=== PATIENT | male | born 1935 | race Caucasian/White ===

== ENCOUNTER 2021-07-23 05:46 | Inpatient (IN) | payer OTHER, SELFPAY ==
[~2021-07-23] VITALS: Ht 172.7 cm; Wt 70.8 kg
[2021-07-23 05:46] VITALS: BP_SYST 115
[~2021-07-23 05:46] MED LIST: ALBMDI INH; ALPR0.25 PO; GLIP5TAB13 PO; GLUXR500 PO; LEVO25TA7 PO
--- NOTE | 2021-07-23 06:01 | NUR ---
Patient BIB by ALS/EMS from [facility]. C/o Altered Mental Status x today. Per ALS/EMS reported, patient took Xanax 2 mg unknown does, Patient came with empty bottle of Xanax (refill on 06/15/21 ) .
--- NOTE | 2021-07-23 06:06 | NUR ---
ER Dr. Pyle at bedside examining patient.
[2021-07-23] MEDS ORDERED: FLUMAZENIL 0.1 MG/ML IVP ONE ×2 (06:15→08:43)
--- NOTE | 2021-07-23 06:30 | NUR ---
IN and out cath , collected urine sample and sent to lab.
[2021-07-23] MEDS ORDERED: SIMV40TA2 PO (06:40)
[2021-07-23] MEDS ORDERED: FAMO20TA8 PO (06:40)
--- NOTE | 2021-07-23 06:40 | NUR ---
Medication reconciliation completed with information provided by patient's medication (bottles) . Any prior medication reconciliation on file was reviewed and corrected.
--- NOTE | 2021-07-23 06:44 | NUR ---
Blood for labwork drawn from director of strategic sales. Patient tolerated fair.
--- NOTE | 2021-07-23 06:45 | NUR ---
Called Poison Control at [phone] for 20 minutes , and no one available to answer phone call.
[2021-07-23 06:54] LABS: BILIRUBIN,URINE NEGATIVE (NEGATIVE); BLOOD, URINE NEGATIVE (NEGATIVE); CLARITY/URINE CLEAR (CLEAR); COLOR,URINE YELLOW (YELLOW); GLUCOSE,URINE NEGATIVE (NEGATIVE); KETONES,URINE NEGATIVE (NEGATIVE); LEUKOCYTE ESTERASE ,URINE NEGATIVE (NEGATIVE); NITRITE, URINE NEGATIVE (NEGATIVE); PH,URINE 6.5 (5.0-8.0); PROTEIN URINE NEGATIVE (NEGATIVE); UROBILINOGEN,URINE 0.2 (0.2-1.0)
[2021-07-23 07:07] LABS: BARBITURATE, URINE NEGATIVE (NEG <=200); METHAMPHETAMINES SCREEN,URINE NEGATIVE (NEG <=500); URINE AMPHETAMINE NEGATIVE (NEG <=500); URINE METHADONE NEGATIVE (NEG <=200)
[2021-07-23 07:10] LABS: BENZODIAZEPINE, URINE POSITIVE (NEG <=150); CANNABINOID, URINE NEGATIVE (NEG <=50); COCAINE, URINE NEGATIVE (NEG <=150); OPIATE, URINE NEGATIVE (NEG <=100); PHENCYCLIDINE SCREEN,URINE NEGATIVE (NEG <=25); UR TRICYCLIC ANTIDEPRESSANTS NEGATIVE (NEG <=300); URINE OXYCODONE SCREEN NEGATIVE (NEG <=100); URINE PROPOXYPHENE SCREEN NEGATIVE (NEG <=300)
--- NOTE | 2021-07-23 07:11 | NUR ---
X-ray at bedside.
[2021-07-23 07:17] LABS: BASOPHILS # (AUTO) 0.1 K/uL (0.0-0.2); BASOPHILS % (AUTO) 1.5 % (0.0-2.0); EOSINOPHILS # (AUTO) 0.3 K/uL (0.0-0.4); EOSINOPHILS % (AUTO) 3.5 % (0.0-4.0); HEMATOCRIT 37.8 % (36-54); HEMOGLOBIN 12.3 g/dL (14.0-18.0); LYMPHOCYTES # (AUTO) 1.6 K/uL (1.0-5.5); LYMPHOCYTES % (AUTO) 19.4 % (20.5-51.5); MEAN CORPUSCULAR HEMOGLOBIN 28 pg (27-31); MEAN CORPUSCULAR HGB CONC 33 % (32-36); MEAN CORPUSCULAR VOLUME 86 fL (79.0-98.0); MONOCYTES # (AUTO) 1.1 K/uL (0.0-1.0); MONOCYTES % (AUTO) 12.8 % (1.7-9.3); NEUTROPHILS # (AUTO) 5.3 K/uL (1.8-7.7); NEUTROPHILS % (AUTO) 62.8 % (40.0-70.0); PLATELET COUNT (AUTO) 291 K/uL (130-430); RED BLOOD CELL COUNT(AUTO) 4.39 MIL/uL (4.2-6.2); RED CELL DISTRIBUTION WIDTH 15.9 % (9.0-15.0); WHITE BLOOD COUNT (AUTO) 8.4 K/uL (4.8-10.8)
[2021-07-23 07:46] LABS: PROTHROMBIN TIME 10.4 SECS (9.5-12.5)
--- NOTE | 2021-07-23 07:49 | NUR ---
RECEIVED REPORT, PT WITH EYES CLOSED, IN NAD. RESP EVEN AND UNLABORED. AROUSABLE TO TACTILE STIMULATION, COUGHING PRODUCTIVE WHITE THICK SPUTUM, ASSISTED WITH YANKUR TO SUCTION. UNABLE TO FOLLOW COMMANDS, PT MUMBLES UNCOMPREHENSIBLE SOUNDS. EYES OPEN, LETHARGIC. VSS,ON RA @98%. SKIN W/D/I. WILL CONT TO MONITOR.
[2021-07-23 08:01] LABS: ANION GAP 6 (5-15); CALCIUM 8.6 mg/dL (8.4-11.0); CHLORIDE 107 mmol/L (98-107); CREATININE 1.24 mg/dL (0.55-1.30); GLUCOSE 155 mg/dL (70-99); POTASSIUM 4.2 mmol/L (3.5-5.1); SODIUM SERUM 139 mmol/L (136-145); UREA NITROGEN, BLOOD 11 mg/dL (8-21)
[2021-07-23 08:08] LABS: ALANINE AMINOTRANSFERASE 31 U/L (12-78); ALBUMIN 2.5 g/dL (3.4-4.8); ASPARTATE AMINOTRANSFERASE 20 U/L (10-37); TOTAL BILIRUBIN 0.5 mg/dL (0.0-1.0)
[2021-07-23 08:09] LABS: ACETAMINOPHEN < 1 ug/mL (1-30); ALCOHOL, BLOOD < 3 mg/dL (<10)
[2021-07-23 08:31] LABS: C-REACTIVE PROTEIN QUANT 1.7 mg/dL (0-0.5)
--- NOTE | 2021-07-23 08:46 | NUR ---
CT SCAN DONE, PT MEDICATED REQUESTED PER DR KIRK AT THIS TIME. PT AWAKENS, MOVING ALL 4 EXTREMITIES , COUGHING PRODUCTIVE THICK WHITE SPUTUM. DR KIRK UPDATED ON CURRENT STATUS. CXR DONE. WAIITNG FOR FURTHER ORDERS.
[2021-07-23 09:23] LABS: ACETONE, SERUM NEGATIVE (NEGATIVE)
--- NOTE | 2021-07-23 09:51 | NUR ---
PT WITH EYES CLOSED, IN NAD. VSS, NO FURTHER COUGH HEARD. RESP UNLABORED, ON RA @96%.
[2021-07-23] MEDS: D5NS 1,000 ML IV SCH (10:30)
--- NOTE | 2021-07-23 11:18 | NUR ---
PHARM WAS CALLED TO [facility] D5[facility].
--- NOTE | 2021-07-23 13:01 | NUR ---
PT WITH EYES CLOSED, IN NAD. RESP EVEN AND UNLABORED. ON MONITOR. VSS. IV FLUIDS INFUSING WELL. WAITING FOR ADMISSION BED, CN AWARE.
[2021-07-23] MEDS ORDERED: INSULIN REGULAR, HUMAN 100 UNITS/ML, 10 ML VIAL (humuLIN R) SUBCUT PRN (15:00)
[2021-07-23] MEDS ORDERED: DEXTROSE 50% JECT 50 ML DISP.SYRIN IVP PRN (15:00)
--- NOTE | 2021-07-23 17:43 | NUR ---
PT WITH EYES CLOSED, INTERMITTENT COUGHING , SUCTIONED SMALL AMOUNTS OF WHITE THICK SPUTUM. RESP EVEN AND UNLABORED, ON RA @97%, LS-COARSE TONNY. WAITING FOR ADMISIIO BED. SAFETY PRECAUTIONS IN PLACE. VSS.
--- NOTE | 2021-07-23 18:56 | NUR ---
DR LYN PAGED FOR COUGH MED ORDER, PT CONTNUES TO HAVE PRODUCTIVE COUGH.
--- NOTE | 2021-07-23 19:33 | NUR ---
REPORT RECEIEVED. PATIENT RESTING AT THIS TIME. IVF INFUSING WITHOUT DIFFUCULTIES. BELONGINGS DONE AT BEDSIDE. Patient's code status is FULL CODE paperwork completed and placed in chart.
--- NOTE | 2021-07-23 20:32 | NUR ---
nPatient will be admitted to care of [facility]. Admitted to tele unit. Will go to room 112b. Belongings list completed. Complete and up to date summary report printed. SBAR report to be given at bedside with opportunity for questions.
--- NOTE | 2021-07-23 20:32 | NUR ---
Transfer to TELE via ACLS protocol. Licensed nurse present. IV present no signs or symptoms of infiltration.
--- NOTE | 2021-07-23 20:42 | NUR ---
ADMISSION NOTE Received patient from ER via lata, received report from Dawna OVIEDO. Patient admitted with diagnosis of Benzo Overdose. Patient oriented to hospital routine, call light, toileting and safety-patient verbalized understanding.
[2021-07-23 20:54] VITALS: BP_SYST 137
[2021-07-23] MEDS: FAMOTIDINE 20 MG TABLET PO SCH (22:39)
[2021-07-24] VITALS: BP_SYST 143
[2021-07-24] MEDS: D5NS 1,000 ML IV SCH (01:43)
--- NOTE | 2021-07-24 07:03 | NUR ---
Nutrition Update Galindo Scale 13 noted. Pt admitted for Benzo Overdose Diet: NPO BMI: 23.7 kg/m2 RD to follow per nutrition care standards.
--- NOTE | 2021-07-24 07:46 | NUR ---
CLOSING NOTES PATIENT RESTING, NO SIGNS OF ACUTE RESPIRATORY DISTRESS NOTED. CALL LIGHT WITHIN REACH, BED ALARM ON, BED LOCKED, BED AT LOWEST POSITION. SAFETY, RESPIRATORY, ASPIRATION, FALL, AND ISOLATION PRECAUTIONS IN PLACE THROUGHOUT SHIFT. WILL ENDORSE CARE TO ONCOMING SHIFT THAT PATIENT IS STAYING AT A MOTEL AND HAS BEEN WITH HIS SON FOR 3 YEARS AND PATIENT'S SON STATES THAT IS THEIR PERMANENT RESIDENCE AND THERE IS "NO NEED TO CALL PROP CUTTER." ALSO ENDORSED BELONGINGS AND HOME MEDICATIONS.
[2021-07-24] MEDS: FAMOTIDINE 20 MG TABLET PO SCH (08:34)
--- NOTE | 2021-07-24 08:36 | NUR ---
alert, oriented, " lives in a motel with son x 3years now" while talking, keeps on coughing dry cough, " disturbing", he said NPO with ivf running continuously at 70cc/hr
[2021-07-24 08:39] VITALS: BP_SYST 148
--- NOTE | 2021-07-24 11:28 | NUR ---
KANE GONZALEZ, SPOKE TO SABI
--- NOTE | 2021-07-24 11:35 | NUR ---
son Krishan called, , patient's condition updated. Seen by attending, patient discharged if cleared from cardiac point of view. Dr Matos made aware for consultation Needs PT eval prior to discharge back to the [facility]. Per Son, Krishan, did ask for the discharge be postponed another day, until he hears from drs, " drs need to call me for my father's condition.
[2021-07-24 12:38] VITALS: BP_SYST 146
[2021-07-24 15:29] VITALS: BP_SYST 129
[2021-07-24 16:50] VITALS: BP_SYST 129
--- NOTE | 2021-07-24 18:41 | NUR ---
called Krishan, patient's son, made aware the discharge back to the [facility] with taxi voucher 1840 taxi arrrived, patient escorted to the lobby by nurse, patient is discharged, alert, oriented, articulate, and continues to cough non productive cough
== END 2021-07-24 18:45 | disposition home or self-care (01) | DRG 917 ==
LOC: SED 05:46 → STU 10:18
PROVIDERS: ADMIT Internal Medicine Hospice and Palliative Medicine; ATTEND Internal Medicine Hospice and Palliative Medicine
DX: T42.4X1A Poisoning by benzodiazepines, accidental (unintentional), initial encounter (principal); G92 Toxic encephalopathy; E43 Unspecified severe protein-calorie malnutrition; E11.9 Type 2 diabetes mellitus without complications; Z20.822 Contact with and (suspected) exposure to COVID-19; Z79.01 Long term (current) use of anticoagulants; Z79.899 Other long term (current) drug therapy; Y92.89 Other specified places as the place of occurrence of the external cause; Z86.16 Personal history of COVID-19
CPT/HCPCS: 36415; 70450-TC; 71045; 76376; 80053; 80307; 81003; 82009; 82140; 82550; 82962; 83605; 83880; 84484; 85025; 85610-TC; 85730-TC; 86140; 93005; 96372; 96374; 99285; G0378; G0480; G0481; G0482; J1815; J3490

== ENCOUNTER 2022-06-23 17:10 | Inpatient (IN) | payer OTHER ==
[~2022-06-23] VITALS: Ht 172.7 cm; Wt 79.4 kg
[~2022-06-23 17:10] MED LIST changes: +FAMO20TA8 PO; +SIMV40TA2 PO
[2022-06-23 17:15] VITALS: BP_SYST 118
[2022-06-23] MEDS ORDERED: MORPHINE 2 MG/ML INJ. SYRINGE IM ONE (17:45)
[2022-06-23 18:26] LABS: BASOPHILS # (AUTO) 0.1 K/uL (0.0-0.2); BASOPHILS % (AUTO) 0.8 % (0.0-2.0); EOSINOPHILS # (AUTO) 0.5 K/uL (0.0-0.4); EOSINOPHILS % (AUTO) 7.2 % (0.0-4.0); HEMATOCRIT 38.4 % (36-54); HEMOGLOBIN 12.8 g/dL (14.0-18.0); LYMPHOCYTES % (AUTO) 14.9 % (20.5-51.5); MEAN CORPUSCULAR HEMOGLOBIN 29 pg (27-31); MEAN CORPUSCULAR HGB CONC 33 % (32-36); MEAN CORPUSCULAR VOLUME 88 fL (79.0-98.0); MONOCYTES # (AUTO) 0.6 K/uL (0.0-1.0); MONOCYTES % (AUTO) 9.1 % (1.7-9.3); NEUTROPHILS # (AUTO) 4.6 K/uL (1.8-7.7); PLATELET COUNT (AUTO) 219 K/uL (130-430); RED BLOOD CELL COUNT(AUTO) 4.38 MIL/uL (4.2-6.2); RED CELL DISTRIBUTION WIDTH 14.5 % (9.0-15.0); WHITE BLOOD COUNT (AUTO) 6.7 K/uL (4.8-10.8)
[2022-06-23] MEDS ORDERED: MORPHINE 4 MG INJ. 4 MG/ML VIAL IVP ONE ×2 (18:30)
[2022-06-23] MEDS ORDERED: MORPHINE 4 MG INJ. 4 MG/ML VIAL IM ONE (18:30)
[2022-06-23 18:33] LABS: PROTHROMBIN TIME 10.2 SECS (9.5-12.5)
[2022-06-23 21:08] LABS: CHLORIDE 104 mmol/L (98-107); SODIUM SERUM 140 mmol/L (136-145)
[2022-06-23 21:09] LABS: ALANINE AMINOTRANSFERASE 22 U/L (12-78); ANION GAP 13 (5-15); ASPARTATE AMINOTRANSFERASE 24 U/L (10-37); CREATININE 1.53 mg/dL (0.55-1.30); GLUCOSE 154 mg/dL (70-99); TOTAL BILIRUBIN 0.4 mg/dL (0.0-1.0); UREA NITROGEN, BLOOD 37 mg/dL (8-21)
[2022-06-23 21:12] LABS: ACETAMINOPHEN < 1 ug/mL (1-30); ALCOHOL, BLOOD < 3 mg/dL (<10)
[2022-06-24 00:54] LABS: BILIRUBIN,URINE NEGATIVE (NEGATIVE); CLARITY/URINE CLEAR (CLEAR); COLOR,URINE YELLOW (YELLOW); GLUCOSE,URINE NEGATIVE (NEGATIVE); KETONES,URINE NEGATIVE (NEGATIVE); LEUKOCYTE ESTERASE ,URINE 3+ (NEGATIVE); NITRITE, URINE NEGATIVE (NEGATIVE); PROTEIN URINE TRACE (NEGATIVE); UROBILINOGEN,URINE 0.2 (0.2-1.0)
[2022-06-24 01:00] LABS: BLOOD, URINE TRACE (NEGATIVE)
[2022-06-24 01:06] LABS: BARBITURATE, URINE NEGATIVE (NEG <=200); BENZODIAZEPINE, URINE POSITIVE (NEG <=150); CANNABINOID, URINE NEGATIVE (NEG <=50); COCAINE, URINE NEGATIVE (NEG <=150); METHAMPHETAMINES SCREEN,URINE NEGATIVE (NEG <=500); OPIATE, URINE POSITIVE (NEG <=100); PHENCYCLIDINE SCREEN,URINE NEGATIVE (NEG <=25); URINE AMPHETAMINE NEGATIVE (NEG <=500); URINE METHADONE NEGATIVE (NEG <=200)
[2022-06-24 01:07] LABS: UR TRICYCLIC ANTIDEPRESSANTS NEGATIVE (NEG <=300); URINE OXYCODONE SCREEN NEGATIVE (NEG <=100); URINE PROPOXYPHENE SCREEN NEGATIVE (NEG <=300)
[2022-06-24 02:20] VITALS: BP_SYST 114
[2022-06-24 02:51] LABS: BACTERIA,URINE None Seen /HPF (None Seen); MUCUS,URINE 1+ /LPF (None Seen); WBC,URINE >100 /HPF (0-3)
[2022-06-24 04:00] VITALS: BP_SYST 122
[2022-06-24 08:26] VITALS: BP_SYST 145
[2022-06-24 12:00] VITALS: BP_SYST 140
[2022-06-24] MEDS ORDERED: HYDROcodone/ACETAMIN 5-325 MG TAB (NORCO/ VICODIN) PO PRN (12:15)
[2022-06-24] MEDS ORDERED: ACETAMINOPHEN 325 MG TABLET PO PRN (12:15)
[2022-06-24] MEDS ORDERED: ALBUTEROL SULFATE 0.083% 2.5 MG/3 ML VIAL.NEB INH PRN (12:15)
[2022-06-24] MEDS ORDERED: LORazepam 2 MG/ML VIAL IVP PRN (12:15)
[2022-06-24] MEDS ORDERED: ONDANSETRON HCL 4 MG/2 ML VIAL IVP PRN (12:15)
[2022-06-24] MEDS ORDERED: NALOXONE HCL 0.4 MG/ML AMP (NARCAN) IVP PRN ×2 (12:15)
[2022-06-24] MEDS ORDERED: IPRATROPIUM BROM 0.5 MG/2.5 ML VIAL.NEB (ATROVENT) INH PRN (12:15)
[2022-06-24] MEDS ORDERED: ALBUTEROL MDI INHALATION 8 GM INH INH PRN (12:15)
[2022-06-24] MEDS: D5/0.45 NS 1,000 ML IV SCH ×2 (13:30→22:15)
[2022-06-24] MEDS: cefTRIAXone 1 GM IVPB PREMIX 50 ML IV SCH (13:30)
[2022-06-24] MEDS: HYDROcodone/ACETAMIN 10-325 MG TAB PO PRN (15:40)
[2022-06-24 16:02] VITALS: BP_SYST 121
[2022-06-24] MEDS: INSULIN REGULAR, HUMAN 100 UNITS/ML, 10 ML VIAL (humuLIN R) SUBCUT PRN (17:13)
[2022-06-24] MEDS: SIMVASTATIN 40 MG TABLET PO SCH (21:02)
[2022-06-24] MEDS: FAMOTIDINE 20 MG TABLET PO SCH (21:02)
[2022-06-25] VITALS: BP_SYST 127
[2022-06-25 07:00] VITALS: BP_SYST 121
[2022-06-25 07:08] LABS: BASOPHILS % (AUTO) 0.4 % (0.0-2.0); EOSINOPHILS # (AUTO) 0.7 K/uL (0.0-0.4); EOSINOPHILS % (AUTO) 11.8 % (0.0-4.0); HEMATOCRIT 38.7 % (36-54); HEMOGLOBIN 12.9 g/dL (14.0-18.0); LYMPHOCYTES # (AUTO) 0.6 K/uL (1.0-5.5); LYMPHOCYTES % (AUTO) 9.4 % (20.5-51.5); MEAN CORPUSCULAR HEMOGLOBIN 29 pg (27-31); MEAN CORPUSCULAR HGB CONC 33 % (32-36); MEAN CORPUSCULAR VOLUME 87 fL (79.0-98.0); MONOCYTES # (AUTO) 0.1 K/uL (0.0-1.0); MONOCYTES % (AUTO) 2.3 % (1.7-9.3); NEUTROPHILS # (AUTO) 4.6 K/uL (1.8-7.7); NEUTROPHILS % (AUTO) 76.1 % (40.0-70.0); PLATELET COUNT (AUTO) 222 K/uL (130-430); RED BLOOD CELL COUNT(AUTO) 4.47 MIL/uL (4.2-6.2); RED CELL DISTRIBUTION WIDTH 14.2 % (9.0-15.0)
[2022-06-25 07:39] LABS: ANION GAP 9 (5-15); CALCIUM 8.3 mg/dL (8.4-11.0); CHLORIDE 104 mmol/L (98-107); CREATININE 1.24 mg/dL (0.55-1.30); GLUCOSE 159 mg/dL (70-99); PHOSPHORUS 2.6 mg/dL (2.7-4.5); POTASSIUM 4.2 mmol/L (3.5-5.1); SODIUM SERUM 139 mmol/L (136-145); UREA NITROGEN, BLOOD 32 mg/dL (8-21)
[2022-06-25 08:00] VITALS: BP_SYST 121
[2022-06-25] MEDS: D5/0.45 NS 1,000 ML IV SCH ×2 (08:15→19:09)
[2022-06-25] MEDS: FAMOTIDINE 20 MG TABLET PO SCH ×2 (09:27→22:29)
[2022-06-25] MEDS: LEVOTHYROXINE SODIUM 0.025 MG TABLET PO SCH (09:29)
[2022-06-25] MEDS ORDERED: HYDR-3919 PO (11:11)
[2022-06-25 12:00] VITALS: BP_SYST 119
[2022-06-25] MEDS: INSULIN REGULAR, HUMAN 100 UNITS/ML, 10 ML VIAL (humuLIN R) SUBCUT PRN (12:08)
[2022-06-25] MEDS: cefTRIAXone 1 GM IVPB PREMIX 50 ML IV SCH (15:04)
[2022-06-25 16:00] VITALS: BP_SYST 124
[2022-06-25] MEDS: ALPRAZolam 0.25 MG TABLET PO PRN (20:23)
[2022-06-25] MEDS: SIMVASTATIN 40 MG TABLET PO SCH (22:29)
[2022-06-25 23:37] VITALS: BP_SYST 128
[2022-06-26 01:45] VITALS: BP_SYST 137
[2022-06-26] MEDS: D5/0.45 NS 1,000 ML IV SCH (04:15)
[2022-06-26 07:00] VITALS: BP_SYST 117
[2022-06-26 08:00] VITALS: BP_SYST 117
[2022-06-26 08:16] LABS: ANION GAP 9 (5-15); CALCIUM 8.4 mg/dL (8.4-11.0); CHLORIDE 105 mmol/L (98-107); CREATININE 1.17 mg/dL (0.55-1.30); GLUCOSE 86 mg/dL (70-99); POTASSIUM 4.1 mmol/L (3.5-5.1); SODIUM SERUM 138 mmol/L (136-145); UREA NITROGEN, BLOOD 25 mg/dL (8-21)
[2022-06-26] MEDS: LEVOTHYROXINE SODIUM 0.025 MG TABLET PO SCH (09:00)
[2022-06-26 09:03] LABS: BASOPHILS % (AUTO) 0.2 % (0.0-2.0); EOSINOPHILS # (AUTO) 0.7 K/uL (0.0-0.4); EOSINOPHILS % (AUTO) 8.7 % (0.0-4.0); HEMATOCRIT 39.8 % (36-54); HEMOGLOBIN 12.7 g/dL (14.0-18.0); LYMPHOCYTES # (AUTO) 1.1 K/uL (1.0-5.5); LYMPHOCYTES % (AUTO) 13.1 % (20.5-51.5); MEAN CORPUSCULAR HEMOGLOBIN 29 pg (27-31); MEAN CORPUSCULAR HGB CONC 32 % (32-36); MEAN CORPUSCULAR VOLUME 89 fL (79.0-98.0); MONOCYTES # (AUTO) 0.4 K/uL (0.0-1.0); MONOCYTES % (AUTO) 5.3 % (1.7-9.3); NEUTROPHILS # (AUTO) 5.9 K/uL (1.8-7.7); NEUTROPHILS % (AUTO) 72.7 % (40.0-70.0); PLATELET COUNT (AUTO) 188 K/uL (130-430); RED BLOOD CELL COUNT(AUTO) 4.46 MIL/uL (4.2-6.2); RED CELL DISTRIBUTION WIDTH 14.3 % (9.0-15.0); WHITE BLOOD COUNT (AUTO) 8.1 K/uL (4.8-10.8)
[2022-06-26] MEDS: FAMOTIDINE 20 MG TABLET PO SCH ×2 (09:13→20:40)
[2022-06-26 14:00] VITALS: BP_SYST 131
[2022-06-26] MEDS: NORMAL SALINE 5 ML DISP.SYRIN IVF SCH ×2 (14:01→22:37)
[2022-06-26 16:25] VITALS: BP_SYST 140
[2022-06-26 20:00] VITALS: BP_SYST 128
[2022-06-26] MEDS: HYDROcodone/ACETAMIN 10-325 MG TAB PO PRN (20:41)
[2022-06-26] MEDS: SIMVASTATIN 40 MG TABLET PO SCH (20:41)
[2022-06-26] MEDS: ALPRAZolam 0.25 MG TABLET PO PRN (20:42)
[2022-06-27] VITALS (9 sets, daily range): BP systolic 110–158
[2022-06-27] MEDS: NORMAL SALINE 5 ML DISP.SYRIN IVF SCH ×3 (06:28→22:00)
[2022-06-27] MEDS ORDERED: DEXTROSE 50% JECT 50 ML DISP.SYRIN IVP ONE (07:30)
[2022-06-27] MEDS: FAMOTIDINE 20 MG TABLET PO SCH ×2 (09:14→21:49)
[2022-06-27] MEDS ORDERED: LEVOTHYROXINE SODIUM 0.025 MG TABLET PO SCH (12:06)
[2022-06-27] MEDS ORDERED: LEVOTHYROXINE SODIUM 0.025 MG TABLET PO ONE (12:15)
[2022-06-27] MEDS: SIMVASTATIN 40 MG TABLET PO SCH (21:49)
[2022-06-28 00:15] VITALS: BP_SYST 126
[2022-06-28] MEDS: NORMAL SALINE 5 ML DISP.SYRIN IVF SCH ×2 (06:00→14:22)
[2022-06-28 07:00] VITALS: BP_SYST 125
[2022-06-28] MEDS ORDERED: LEVOTHYROXINE SODIUM 0.025 MG TABLET PO SCH (07:00)
[2022-06-28 08:00] VITALS: BP_SYST 125
[2022-06-28 08:24] LABS: BASOPHILS % (AUTO) 0.4 % (0.0-2.0); EOSINOPHILS # (AUTO) 0.4 K/uL (0.0-0.4); EOSINOPHILS % (AUTO) 5.2 % (0.0-4.0); HEMATOCRIT 35.8 % (36-54); HEMOGLOBIN 12.1 g/dL (14.0-18.0); LYMPHOCYTES # (AUTO) 1.2 K/uL (1.0-5.5); LYMPHOCYTES % (AUTO) 16.1 % (20.5-51.5); MEAN CORPUSCULAR HEMOGLOBIN 29 pg (27-31); MEAN CORPUSCULAR HGB CONC 34 % (32-36); MEAN CORPUSCULAR VOLUME 86 fL (79.0-98.0); MONOCYTES # (AUTO) 0.5 K/uL (0.0-1.0); NEUTROPHILS # (AUTO) 5.5 K/uL (1.8-7.7); NEUTROPHILS % (AUTO) 72.3 % (40.0-70.0); PLATELET COUNT (AUTO) 260 K/uL (130-430); RED BLOOD CELL COUNT(AUTO) 4.15 MIL/uL (4.2-6.2); WHITE BLOOD COUNT (AUTO) 7.6 K/uL (4.8-10.8)
[2022-06-28] MEDS: FAMOTIDINE 20 MG TABLET PO SCH (09:05)
[2022-06-28 09:55] LABS: ALANINE AMINOTRANSFERASE 12 U/L (12-78); ALBUMIN 2.4 g/dL (3.4-4.8); ANION GAP 9 (5-15); ASPARTATE AMINOTRANSFERASE 19 U/L (10-37); CALCIUM 8.5 mg/dL (8.4-11.0); CHLORIDE 104 mmol/L (98-107); CREATININE 1.39 mg/dL (0.55-1.30); GLUCOSE 118 mg/dL (70-99); PHOSPHORUS 2.6 mg/dL (2.7-4.5); POTASSIUM 4.5 mmol/L (3.5-5.1); SODIUM SERUM 138 mmol/L (136-145); TOTAL BILIRUBIN 0.3 mg/dL (0.0-1.0); UREA NITROGEN, BLOOD 28 mg/dL (8-21)
[2022-06-28] MEDS ORDERED: LORazepam 1 MG TABLET PO PRN (11:15)
[2022-06-28] MEDS ORDERED: NA PHOS 15 MM in NS 250 ML IV ONE (11:45)
[2022-06-28 12:00] VITALS: BP_SYST 125
== END 2022-06-28 15:05 | disposition home health service (06) | DRG 562 ==
LOC: SED 17:10 → SMU 20:04
PROVIDERS: ADMIT Preventive Medicine Preventive Medicine/Occupational Environmental Medicine; ATTEND Preventive Medicine Preventive Medicine/Occupational Environmental Medicine
DX: S42.212A Unspecified displaced fracture of surgical neck of left humerus, initial encounter for closed fracture (principal); N17.0 Acute kidney failure with tubular necrosis; U07.1 COVID-19; E87.2 Acidosis; F13.20 Sedative, hypnotic or anxiolytic dependence, uncomplicated; F41.9 Anxiety disorder, unspecified; J44.9 Chronic obstructive pulmonary disease, unspecified; E78.5 Hyperlipidemia, unspecified; E03.9 Hypothyroidism, unspecified; K21.9 Gastro-esophageal reflux disease without esophagitis; E11.65 Type 2 diabetes mellitus with hyperglycemia; E83.39 Other disorders of phosphorus metabolism; E88.09 Other disorders of plasma-protein metabolism, not elsewhere classified; I10 Essential (primary) hypertension; M41.9 Scoliosis, unspecified; G47.00 Insomnia, unspecified; M41.86 Other forms of scoliosis, lumbar region; M47.816 Spondylosis without myelopathy or radiculopathy, lumbar region; W18.39XA Other fall on same level, initial encounter; Y93.89 Activity, other specified; Y92.89 Other specified places as the place of occurrence of the external cause; Y99.8 Other external cause status
CPT/HCPCS: 36415; 71045; 72100-TC; 72170-TC; 73030; 80048; 80053; 80307; 81000; 82962; 83605; 83735; 84100; 84484; 85025; 85610-TC; 85730-TC; 87040; 87081; 93005; 96374; 97110-GP; 97116-GP; 97163-GP; 99285; G0480; G0481; G0482; J0696; J1815; J2060; J2270; J7050

== ENCOUNTER 2022-11-02 18:21 | Inpatient (IN) | payer OTHER ==
[~2022-11-02] VITALS: Ht 170.2 cm; Wt 80.7 kg
[~2022-11-02 18:21] MED LIST changes: +HYDR-3919 PO
[2022-11-02 18:23] VITALS: BP_SYST 156
--- NOTE | 2022-11-02 18:30 | NUR ---
Placed in room 06 . Placed on monitor technician, blood pressure machine and pulse oximeter. To gown for exam. Side rails up.
--- NOTE | 2022-11-02 18:35 | NUR ---
PT BIBA FROM [facility]OTEL C/O RECTAL PAIN, PT REPORTS NO BM X 2 WEEKS. PT FEELS LIKE HE NEEDS TO HAVE BM BUT IT "WON'T COME OUT". PT HAS REDNESS TO BOTTOM AND DRY SKIN. PT IS AMBULATORY, AAOX4, VSS
--- NOTE | 2022-11-02 19:20 | NUR ---
REPORT GIVEN TO ROXANNE RN FOR CONTINUING CARE
--- NOTE | 2022-11-02 19:30 | NUR ---
REC REPORT FROM ANDRÉS OVIEDO. PT FOUND WALKING AROUND OUTSIDE OF ROOM. PT BROUGHT BACK TO BED, GIVEN NON-SLIP SOCKS AND NEW GOWN. BED TO LOWEST POSITION AND SAFETY PRECAUTIONS IN PLACE.
[2022-11-02 19:45] LABS: BASOPHILS % (AUTO) 0.3 % (0.0-2.0); EOSINOPHILS # (AUTO) 0.3 K/uL (0.0-0.4); EOSINOPHILS % (AUTO) 3.2 % (0.0-4.0); HEMOGLOBIN 12.5 g/dL (14.0-18.0); LYMPHOCYTES # (AUTO) 1.6 K/uL (1.0-5.5); LYMPHOCYTES % (AUTO) 16.1 % (20.5-51.5); MEAN CORPUSCULAR HEMOGLOBIN 29 pg (27-31); MEAN CORPUSCULAR HGB CONC 32 % (32-36); MEAN CORPUSCULAR VOLUME 89 fL (79.0-98.0); MONOCYTES # (AUTO) 0.7 K/uL (0.0-1.0); MONOCYTES % (AUTO) 7.2 % (1.7-9.3); NEUTROPHILS # (AUTO) 7.2 K/uL (1.8-7.7); NEUTROPHILS % (AUTO) 73.2 % (40.0-70.0); PLATELET COUNT (AUTO) 311 K/uL (130-430); RED BLOOD CELL COUNT(AUTO) 4.37 MIL/uL (4.2-6.2); RED CELL DISTRIBUTION WIDTH 15.2 % (9.0-15.0); WHITE BLOOD COUNT (AUTO) 9.8 K/uL (4.8-10.8)
[2022-11-02 20:02] LABS: ANION GAP 11 (5-15); CALCIUM 8.7 mg/dL (8.4-11.0); CHLORIDE 109 mmol/L (98-107); GLUCOSE 114 mg/dL (70-99); UREA NITROGEN, BLOOD 32 mg/dL (8-21)
[2022-11-02 20:14] LABS: ALANINE AMINOTRANSFERASE 13 U/L (12-78); ALBUMIN 2.8 g/dL (3.4-4.8); ASPARTATE AMINOTRANSFERASE 16 U/L (10-37); C-REACTIVE PROTEIN QUANT 6.5 mg/dL (0-0.5); TOTAL BILIRUBIN 0.3 mg/dL (0.0-1.0)
[2022-11-02 20:15] LABS: AMYLASE 20 U/L (0-100); LACTATE DEHYDROGENASE 198 U/L (85-227); LIPASE 25 U/L (73-393)
[2022-11-02 20:27] LABS: ACETONE, SERUM NEGATIVE (NEGATIVE)
[2022-11-02 21:49] LABS: BILIRUBIN,URINE NEGATIVE (NEGATIVE); BLOOD, URINE 2+ (NEGATIVE); CLARITY/URINE CLEAR (CLEAR); COLOR,URINE YELLOW (YELLOW); GLUCOSE,URINE NEGATIVE (NEGATIVE); KETONES,URINE NEGATIVE (NEGATIVE); LEUKOCYTE ESTERASE ,URINE 3+ (NEGATIVE); NITRITE, URINE NEGATIVE (NEGATIVE); PROTEIN URINE 1+ (NEGATIVE); UROBILINOGEN,URINE 0.2 (0.2-1.0)
[2022-11-02 22:06] LABS: RBC,URINE >100 /HPF (0-3); WBC,URINE 0-3 /HPF (0-3)
[2022-11-02 22:07] LABS: BACTERIA,URINE None Seen /HPF (None Seen)
[2022-11-02 22:08] LABS: MUCUS,URINE 2+ /LPF (None Seen)
[2022-11-02] MEDS ORDERED: GOLYTELY / COLYTE SOLUTION 4 LITERS PO ONE (22:30)
--- NOTE | 2022-11-02 22:54 | NUR ---
COVID SWAB GIVEN TO LAB
[2022-11-02 23:17] LABS: OPIATE, URINE POSITIVE (NEG <=100)
[2022-11-02 23:18] LABS: BARBITURATE, URINE NEGATIVE (NEG <=200); BENZODIAZEPINE, URINE POSITIVE (NEG <=150); CANNABINOID, URINE NEGATIVE (NEG <=50); COCAINE, URINE NEGATIVE (NEG <=150); METHAMPHETAMINES SCREEN,URINE NEGATIVE (NEG <=500); PHENCYCLIDINE SCREEN,URINE NEGATIVE (NEG <=25); UR TRICYCLIC ANTIDEPRESSANTS NEGATIVE (NEG <=300); URINE AMPHETAMINE NEGATIVE (NEG <=500); URINE METHADONE NEGATIVE (NEG <=200); URINE OXYCODONE SCREEN NEGATIVE (NEG <=100); URINE PROPOXYPHENE SCREEN NEGATIVE (NEG <=300)
[2022-11-02] MEDS: 0.45% NACL 1,000 ML IV SCH (23:23)
--- NOTE | 2022-11-03 01:36 | NUR ---
Pt states he feels a bowel movement coming. Pt assisted to bedside commode by EMT. Safety precautions in place.
--- NOTE | 2022-11-03 01:45 | NUR ---
PT ASSITED BACK INTO BED BY RN AND EMT. BED PLACED TO LOWEST POSITON, COMMODE AT BEDSIDE, SAFETY PRECAUTIONS IN PLACE. PT EDUCATED TO CALL FOR NURSE WHEN NEEDING ASSISTENCE TO BEDSIDE COMMODE.
[2022-11-03] MEDS ORDERED: NAPR-690 PO (01:54)
[2022-11-03] MEDS ORDERED: LEVO75CA5 PO (01:54)
--- NOTE | 2022-11-03 01:55 | NUR ---
MED REC COMPLETED. MEDICATIONS PROVIDED BY PATIENT.
--- NOTE | 2022-11-03 02:10 | NUR ---
PT ASSISTED TO BESIDE COMMODE REUQESTED. EMT AND RN ASSISTED TO TRANSFER PATIENT TO COMMODE. PT INFORMED TO CALL FOR NURSE WHEN DONE.
--- NOTE | 2022-11-03 02:30 | NUR ---
PT PLACED BACK IN BED, POSITIONED TO THE LOWEST TO POSITION. INSTRUCTED TO CALL NURSE WHEN IN NEED OF ASSISTENCE TO BEDSIDE COMMODE. PT BACK IN BED RESTING, SAFETY PRECAUTIONS IN PLACE AND CONNECTED TO MONITOR.
--- NOTE | 2022-11-03 02:39 | NUR ---
PT CONTINUING TO REMOVE MONITOR CORDS AFTER EDUCATED ON NEED FOR VITAL SIGNS. SAFETY PRECAUTIONS IN PLACE AND RECONNECTED TO MONITOR.
--- NOTE | 2022-11-03 03:45 | NUR ---
PT FOUND LAYING AND YELLING ON FLOOR. PT FOUND WITH HEMATOMA TO LEFT SIDE OF FOREHEAD AND SKIN TEAR TO LEFT LOWER LEG. PT WAS ASSISTED BACK INTO BED BY RN AND HAND CIGAR MAKING SUPERVISOR. PT A&O X2 WHICH IS BASELINE, EQUAL STENGTH TO EXTREMITIES, BLEEDING CONTROLLED. BED PLACED TO LOWEST POSITION, SIDE RAIL UP, PT EDUCATED TO CALL FOR NURSE WHEN NEEDING ASSISTENCE. SAFETY PRECAUTIONS IN PLACE AND CONNECTED TO MONITOR. DR. TESS MIDDLETON AND DR. SAL MADE AWARE.
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
--- NOTE | 2022-11-03 03:58 | NUR ---
PT REFUSING IV ACCESS AND WOUND CARE. PT EDUCATED ON NEED FOR IV AND REFUSED. WHEN ATTEMPTING TO PROVIDE WOUND CARE PT STATED "DO NOT TOUCH ME WITH THAT, I DONT WANT IT." SAFETY PRECAUTIONS IN PLACE AND CONNECTED TO MONITOR.
[2022-11-03] MEDS ORDERED: LORazepam 2 MG/ML VIAL IM ONE (04:30)
--- NOTE | 2022-11-03 04:50 | NUR ---
PT TO CT VIA NAYELI ACCOMPANIED BY RG AND RN.
--- NOTE | 2022-11-03 05:09 | NUR ---
PT BACK FROM CT VIA NAYELI ACCOMPANIED BY GR AND RN.
--- NOTE | 2022-11-03 06:00 | NUR ---
Dr Rosado made aware of patient's fall and sustained hematoma to left forehead.
--- NOTE | 2022-11-03 06:19 | NUR ---
LATE ENTRY: AROUND 0530, PT CALLED FOR ASSISTANCE. MYSELF AND REHAB AID ASSISTED. PT HAD SEVERAL BOWEL MOVEMENTS. PATIENT WAS CLEANED SEVERAL TIMES AND CLEAN LINENS PROVIDE. PT REPORTS FEELING RELIEF AFTER BOWEL MOVEMENT.
--- NOTE | 2022-11-03 06:57 | NUR ---
# 22 gauge angiocath placed to RIGHT FOREARM. Use of asceptic technique. Opsite placed over site. Blood return noted. Blood for lab drawn from site. Flushed with 10 cc of normal saline. No evidence of infiltration noted. Patient tolerated well.
--- NOTE | 2022-11-03 07:15 | NUR ---
REPORT GIVEN TO ROGERIO RN TO ASSUME CARE.
[2022-11-03] MEDS ORDERED: BACITRACIN 1 GM OINT TP ONE ×2 (08:19→08:34)
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
--- NOTE | 2022-11-03 11:12 | NUR ---
CONSULT CALLED DR DIAS FOR CONSULT DX PULMONARY SPOKE WITH AXEL
--- NOTE | 2022-11-03 11:12 | NUR ---
CONSULT TEXTED DR GOODE FOR CONSULT. DX ALOC.
[2022-11-03 11:22] LABS: ANION GAP 10 (5-15); CALCIUM 9.1 mg/dL (8.4-11.0); CHLORIDE 108 mmol/L (98-107); CREATININE 1.37 mg/dL (0.55-1.30); GLUCOSE 83 mg/dL (70-99); UREA NITROGEN, BLOOD 33 mg/dL (8-21)
--- NOTE | 2022-11-03 11:30 | NUR ---
received pt from er. a/x3. denies any pain..not in acute distress. res even and unlabored.. iv rt hand #22. patent. no s/s of infiltration noted. ivf infusing well. pt cleaned and repositioned. poc discussed withpt verbalized understanding. fall and safety precautions inplace. bedalarm on. kept comfortable will continue to monitor
[2022-11-03 11:48] VITALS: BP_SYST 110
--- NOTE | 2022-11-03 12:33 | NUR ---
SPOKE WITH DR PULIDO INFORMED THAT PATIENTS HEART RATE IS IRREGULAR, NEW ORDERS RECEIVED
--- NOTE | 2022-11-03 12:37 | NUR ---
CONSULT PAGED DR HURD DX IRREG HEART BEAT. SPOKE WITH SABI
--- NOTE | 2022-11-03 13:00 | NUR ---
lunch served pt eating. denies any pain or orther discomfort not in acute distress.
[2022-11-03] MEDS ORDERED: BISACODYL 10 MG/SUPPOSITORY RC ONE (13:30)
[2022-11-03] MEDS ORDERED: MINERAL OIL 30 ML UDC PO ONE (13:30)
[2022-11-03 14:01] LABS: FREE T4 (FREE THYROXINE) 1.2 ng/dl (0.8-1.5); THYROID STIMULATING HORMONE 5.15 uIu/mL (0.36-3.74)
[2022-11-03 16:30] VITALS: BP_SYST 131
--- NOTE | 2022-11-03 16:30 | NUR ---
PT RESTING . NOTI IN ACUTE DISTRESS. IVF INFUSING WELL. VITALS STABLE WILL CONITNUE TO MONITOR
--- NOTE | 2022-11-03 17:00 | NUR ---
Patient will be admitted to care of DR PULIDO. Admitted to TELE unit. Will go to room 122A. Belongings list completed. Complete and up to date summary report printed. SBAR report to be given at bedside with opportunity for questions.
[2022-11-03] MEDS: 0.45% NACL 1,000 ML IV SCH ×2 (17:33→23:30)
--- NOTE | 2022-11-03 18:36 | NUR ---
pt stable not in acute distress. ivf infusing well. denies any pain. eating dinner.needs attended
[2022-11-03 19:00] VITALS: BP_SYST 126
--- NOTE | 2022-11-03 19:15 | NUR ---
change of shift.pt.presents quiescent affect;calm,resting.pt.presents iv access location;rt.forearm intact iv fluids infusing. no c/o pain,nausea.pt.presents s/p fall;outside hospital.abrasions noted.pt.utilizing urinal w/in access of the pt.call light/ telephone w/in access of the pt.
[2022-11-03 20:00] VITALS: BP_SYST 126
--- NOTE | 2022-11-03 20:00 | NUR ---
pt.assessed.v/s assessed values wnl.no c/o pain,.nausea.pt.apprised that snacks/beverages are available w/in the shift. pt.requested coffee;provided.iv access intact.pt,assessed for cleanliness.pt.capable to reposition self.call light/telephone w/in access of the pt.
--- NOTE | 2022-11-03 22:00 | NUR ---
pt.assessed.quiescent.per flacc pain mgx pt.absent facial grimaces/body posturing.pt.capable to reposition self. call light/telephone w/in access of the pt.
[2022-11-04] VITALS: BP_SYST 124
--- NOTE | 2022-11-04 | NUR ---
pt.assessed.v/s assessed values wnl.no c/o pain,nausea.iv access intact.urinal attended to placed w/in access of the pt. pt.capable to reposition self.no requests posited@this hour.call light/telephone w/in access of the pt.
--- NOTE | 2022-11-04 02:00 | NUR ---
pt.assessed.quiescent.no c/o pain,nausea.iv access intact.urinal attended to placed w/in access of the pt.pt.capable to reposition self.call light/telephone w/in access of the pt.
--- NOTE | 2022-11-04 04:00 | NUR ---
pt.assessed.pt.quiescent.per flacc pain mgx pt.absent facia l grimaces/body posturing.iv access intact;patent.urinal w/in access of the pt.pt.assessed for cleanliness.pt.capable to reposition self.call light/telephone w/in access of the pt.
--- NOTE | 2022-11-04 06:16 | NUR ---
pt.assessed.no c/o pain,nausea.blood glucose assessed value;106mg/dl.pt.assessed for cleanliness.pt.repositioned. pt requested coffee provided.urinal attended to placed w/in access of the pt.call light/telephone placed w/in access of the pt.
--- NOTE | 2022-11-04 07:30 | NUR ---
RN OPENING NOTE REPORT WAS ENDORSED BY NIGHT NURSE. PATIENT IS APPEARS TO BE RESTING WITH BOTH EYES CLOSED NO SIGNS OF ANY DISTRESS. BREATHING IS EQUAL AND NON LABORED. PATIENT HAS ALL SAFETY PRECAUTIONS IN PLACE. NO OTHER NEEDS AT THIS TIME.
[2022-11-04 08:00] VITALS: BP_SYST 152
--- NOTE | 2022-11-04 10:51 | NUR ---
NEW iv SITE PATIENTS IV INFILTRATED TO RIGHT FA REMOVED CATHETER, CATHETER INTACT, PLACE GAUZE AND TAPE TO INSERTION SITE.NEW IV SITE OBTAINED TO LEFT HAND 22 G FLUSHING WELL. PATIENT HAS NO OTHER NEEDS AT THIS TIME. CALL LIGHT IS WITH HIM EDUCATED HIM ON HOW TO USE CALL LIGHT. PATIENT HAS NO COMPLAINTS AT THIS TIME.
[2022-11-04 12:10] VITALS: BP_SYST 138
[2022-11-04] MEDS: 0.45% NACL 1,000 ML IV SCH (12:16)
--- NOTE | 2022-11-04 12:17 | NUR ---
iv fluid new bag hung per order. patient is awake and alert laying in bed. no signs of any distress, breathing is equal and non labored. patient has all safety precautions in place. educated to use call light for assistance. call light is with him.
--- NOTE | 2022-11-04 13:45 | NUR ---
WOUND EVALUATION: Wound Consult received from Dr. Kadie Rosado. Thank you, Dr. Rosado, for the consult. Patient received in a Loc Bed with an IsoFlex FRITZ mattress, awake, alert, confused. Patient is unable to turn independently. Galindo Score is a . Past Medical History: Diabetes Mellitus Type 2, Hypothyroidism, Hyperlipidemia, mechanical fall with a fractured left humeral neck fracture about 4 months ago, history of Osteoporosis, chronic back pain, Chronic Insomnia, COPD, possible early Dementia. Patient was admitted for rectal pain and constipation (last bowel movement was 4 to 5 prior to admission). Recent Labs: WBC 9.8, RBC 4.37, hemoglobin 12.5, hematocrit 39.0, chloride 108, CO2 21, BUN 33, creatinine 1.37, albumin 2.8. No microbiology reports. Intrinsic factors that delay wound healing: Diabetes Mellitus Type 2, COPD. Extrinsic factors that delay wound healing: Decreased mobility. Wound Assessment: 1. Coccygeal area: Stage II pressure ulcer, present on admission. Patient said site was a blister that had opened. Site now has MASD with multiple small open areas with pink tissue and moist open residual skin areas. No odor, no drainage. Site measures 9.4 cm x 10.0 cm. Recommend: Cleanse involved areas with normal saline. Gently pat dry. Apply Calmoseptine cream to involved areas. Cover site with sacral foam dressing. Perform site care daily, and as needed for dressing soiling or dislodgment. May apply Calmoseptine cream qidp to erythematous areas surrounding dressing. 2. Buttocks, Scrotum, bilateral Inguinal areas: Severe IAD with bright red erythema, present on admission. No odor, no drainage. Recommend: Cleanse involved areas with mild soap and water. Gently pat dry. Apply Calmoseptine cream to involved areas. Perform site care 4 times daily and as needed for soiling. 3. Left lateral lower extremity, inferior to knee: Abrasion with multiple small open areas from fall at home, present on admission. Sites have 70% red tissue, 20% black scab, 10% yellow tissue. No odor, no drainage. Periwound's intact Recommend: Cleanse site with normal saline. Apply Sureprep to perimeter of site. Apply Therahoney sheet (cut to size) to site. Apply Hydrogel on top of Therahoney sheet. Cover with foam dressing. For site care daily, and as needed for dressing soiling or dislodgment. 4. Superior Parietal area of Cranium: Abrasion from fall at home, present on admission. Site has 75% red tissue, 15% black scab, 10% yellow tissue. No odor, small yellow/red drainage. Periwound intact. Wound measures 5.5 cm x 5.7 cm. Recommend: Cleanse site with normal saline. Apply Sureprep to perimeter of site. Apply Therahoney sheet (cut to size) to site. Apply Hydrogel on top of Therahoney sheet. Cover with foam dressing. Perform site care daily, and as needed for dressing soiling or dislodgment. 5. Left Posterior Heel: Slowly blanchable redness, present on admission. 6. Right Posterior Heel: Slowly blanchable redness, present on admission. Broken skin present. Recommend: Cover sites with foam dressings for protection. Elevate, offload and float bilateral heels with 1 pillow lengthwise under each extremity at all times. Also recommend: Reposition patient side to side only every 2 hours with pillow support and off-load pressure areas with pillows for pressure re-distribution. Offload, elevate and float bilateral heels with pillows. Perform skin care and monitor skin integrity Q shift. Use Calmoseptine cream on buttocks and other moisture susceptible areas QID and as needed for soiling. Initiate low air-loss therapy by adding an air pump to the Isoflex FRITZ mattress.
--- NOTE | 2022-11-04 13:58 | NUR ---
Arc Welder Apprentice LEAD ADVISOR received a referral to see pt. for monetary issues. LEAD ADVISOR introduced self to pt who was happy to see her. Pt. was AOx4, friendly and a good historian. Pt. stated he was concerned because he just learned that his son was a pt. here in ICU. Pt. stated, "I get money from the state from [place], $1,000 and from [employer], $1,000 on the 14th of each month. Pt. was concerned that his son Krishan was going to leave the hospital and get his card to access these funds to purchase drugs. Pt Mendez stated son has never not paid the rent with this money, but pt. was concerned because he never changed the pin. Pt. stated Zarfo in [facility] will need him to come in and change his pin number and this will help pt. secure his funds that are directly deposited into the bank. Pt was also concerned with paying his rent on time. LEAD ADVISOR asked if it was ok if she called his apt. complex to let them know that pt is in the hospital and will pay the rent upon discharge. Rent is $1,800 due on . Pt also stated he eats 3 meals a day when Krishan is around and when Krishan is not around, Mendez eats 2 meals a day. Pt stated Krishan gets food from the food gould and other times his neighbors in [address] help bring food to him or take him to buy food. LEAD ADVISOR offered pt some resources such as homeless packets and well as resources for seniors. LEAD ADVISOR will call the hotel to let them know this pt is in the hospital as Mendez gave permission for LEAD ADVISOR to do so. LEAD ADVISOR will check in on pt. tomorrow.
--- NOTE | 2022-11-04 14:12 | NUR ---
Dietitian Recommendations * Recommend switch to mechanical soft diet as pt is w/o top dentures * Consider bowel regimen * Consider wound supplements: MVI, 250 mg VIT C, Jarek BID * Consider 220mg ZnSO4 x 14 days for wound healing GS, MPH, RD Please refer to RD Assessment for further details Addendum: 11/04/22 at [address] Amended: Links added.
[2022-11-04 16:10] VITALS: BP_SYST 136
[2022-11-04] MEDS ORDERED: HONEY WOUND DRESSING 1 EACH TP ONE (17:00)
[2022-11-04] MEDS ORDERED: HONEY WOUND DRESSING 1 EACH TP PRN (17:00)
[2022-11-04] MEDS ORDERED: MENTHOL/ZINC OXIDE 113 GM OINT. TP PRN (17:00)
[2022-11-04] MEDS: INSULIN REGULAR, HUMAN 100 UNITS/ML, 3 ML VIAL (humuLIN R) SUBCUT PRN ×2 (17:27→22:38)
[2022-11-04] MEDS ORDERED: NON-FORMULARY MEDICATION (Naproxen 500 MG) PO PRN (17:30)
--- NOTE | 2022-11-04 17:30 | NUR ---
accu check patients accu check done coverage given as ordered. patient is awake and alert sitting up in bed no signs of any distress. breathing is equal and non labored call light is with him. patient has no other needs at this time call light is with him.
[2022-11-04] MEDS ORDERED: NAPROXEN 250 MG TABLET PO PRN (17:45)
--- NOTE | 2022-11-04 19:37 | NUR ---
rn closing note report was endorsed to RN patient shows no signs of any distress, breathing is equal and non labored. all safety precautions in place. call light is with him educated to use for assistance.no other needs at this time.
[2022-11-04 20:00] VITALS: BP_SYST 149
[2022-11-05] MEDS: 0.45% NACL 1,000 ML IV SCH ×2 (00:33→15:12)
[2022-11-05 01:07] VITALS: BP_SYST 134
[2022-11-05] MEDS: LEVOTHYROXINE SODIUM 0.075 MG TABLET PO SCH (06:55)
[2022-11-05 07:21] LABS: ANION GAP 8 (5-15); CALCIUM 8.4 mg/dL (8.4-11.0); CHLORIDE 110 mmol/L (98-107); CREATININE 1.08 mg/dL (0.55-1.30); GLUCOSE 88 mg/dL (70-99); UREA NITROGEN, BLOOD 19 mg/dL (8-21)
[2022-11-05 07:26] LABS: BASOPHILS % (AUTO) 0.4 % (0.0-2.0); EOSINOPHILS # (AUTO) 0.2 K/uL (0.0-0.4); EOSINOPHILS % (AUTO) 3.7 % (0.0-4.0); HEMOGLOBIN 11.7 g/dL (14.0-18.0); LYMPHOCYTES # (AUTO) 1.3 K/uL (1.0-5.5); LYMPHOCYTES % (AUTO) 21.8 % (20.5-51.5); MEAN CORPUSCULAR HEMOGLOBIN 29 pg (27-31); MEAN CORPUSCULAR HGB CONC 33 % (32-36); MEAN CORPUSCULAR VOLUME 87 fL (79.0-98.0); MONOCYTES # (AUTO) 0.8 K/uL (0.0-1.0); MONOCYTES % (AUTO) 13.7 % (1.7-9.3); NEUTROPHILS # (AUTO) 3.6 K/uL (1.8-7.7); NEUTROPHILS % (AUTO) 60.4 % (40.0-70.0); PLATELET COUNT (AUTO) 248 K/uL (130-430); RED BLOOD CELL COUNT(AUTO) 4.04 MIL/uL (4.2-6.2); RED CELL DISTRIBUTION WIDTH 15.1 % (9.0-15.0)
[2022-11-05 08:42] VITALS: BP_SYST 165
[2022-11-05] MEDS ORDERED: NON-FORMULARY MEDICATION (Levothyroxine Sodium (Levothyroxine) 75 MCG) PO SCH (09:00)
[2022-11-05] MEDS: HONEY WOUND DRESSING 1 EACH TP SCH (10:25)
[2022-11-05 11:44] VITALS: BP_SYST 138
--- NOTE | 2022-11-05 13:41 | NUR ---
Ice Puller MANAGER WEB APPLICATION called pts. management at his hotel the [facility], [place], who was already aware that both pt and son were admitted to this hospital. When asked if they had family or friends [place] stated they have noone. MANAGER WEB APPLICATION mentioned pt. has said they have friends in [address] who look in on him, [place] replied these people are moving out. There is noone who can check on Deandre as he waits for his son Krishan to be discharged. Pt. and son pay $1800 in rent at this hot a month. [place] is aware and knows they will pay rent once they are out of the hospital. MANAGER WEB APPLICATION will remain available as needed.
[2022-11-05 15:56] VITALS: BP_SYST 153
--- NOTE | 2022-11-05 16:58 | NUR ---
ROUNDS LATE ENTRY DUE TO PATIENT CARE 0900-IN BED, AAO X4. ASKING ABOUT HS SON IN THE ICU AND TO SHANK THREADER, DENIES PAIN AT THIS TIME. PLAN OF CARE DISCUSSED WITH PATIENT 1100- /APS HER TO PATIENT DUE TO A REPORT MADE BY SHANK THREADER YESTERDAY. WALKED OFFICER IN THE ROOM WHO SW PATIENT. AFTER ARMATURE BANDER S/W PATIENT, HE STATED THAT THE CASE WILL BE CLOSE AND THAT OPATIENT NEEDS PLACEMENT 1400- WOUND CARE DONE
[2022-11-05] MEDS ORDERED: SIMVASTATIN 40 MG TABLET PO SCH (17:00)
--- NOTE | 2022-11-05 19:23 | NUR ---
closing all needs attenden. report given to zoraida Addendum: 11/05/22 at 1929 by Grisel Mcdonald RN report given to oriana
[2022-11-05 20:00] VITALS: BP_SYST 152
--- NOTE | 2022-11-05 20:00 | NUR ---
pt is alert and oriented x4. unsteady gait. follow command. wanted the nurse to convey the massage to his son that is in ICU that he is is here.
[2022-11-05] MEDS: INSULIN REGULAR, HUMAN 100 UNITS/ML, 3 ML VIAL (humuLIN R) SUBCUT PRN (21:18)
--- NOTE | 2022-11-05 23:00 | NUR ---
pt voided in urinal 300 ml
[2022-11-06 00:40] VITALS: BP_SYST 146
[2022-11-06] MEDS: 0.45% NACL 1,000 ML IV SCH (04:30)
[2022-11-06] MEDS: LEVOTHYROXINE SODIUM 0.075 MG TABLET PO SCH (06:31)
--- NOTE | 2022-11-06 08:00 | NUR ---
AM NOTES PATIENT TOOK BREAKFAST TOLERATED WELL, FOR POSSIBLE DISCHARGE TODAY, SEEN BY GROUNDS MANAGER.
[2022-11-06 08:30] VITALS: BP_SYST 132
[2022-11-06] MEDS: HONEY WOUND DRESSING 1 EACH TP SCH (10:13)
--- NOTE | 2022-11-06 12:00 | NUR ---
SEEN BY DR PLUIDO FOR DISCHARGE TODAY, FOLLOW UP HOME HEALTH AND PLACEMENT TO OUTSIDE BLOW MOLDING MACHINE OPERATOR. AWAITING TO CALL BACK.
[2022-11-06 12:32] VITALS: BP_SYST 138
[2022-11-06 13:23] VITALS: BP_SYST 130
[2022-11-06] MEDS ORDERED: COLL100 PO (13:43)
[2022-11-06] MEDS ORDERED: DOCU250C14 PO (13:43)
[2022-11-06 16:00] VITALS: BP_SYST 133
--- NOTE | 2022-11-06 16:00 | NUR ---
WOUND PHOTO TAKEN PHOTO TAKEN ON WOUND, DRESSING CHANGED. [facility]ALTH WILL SEE PATIENT AT THE [facility]. PATIENT WII GO TO [facility] THAT HE WAS STAYING FOR A WHILE, SON MADE AWARE THAT HE IS GOING BACK TO THE [facility]. PHYSICAL THERAPY EVALUATED PATIENT LAST FRIDAY, ABLE TO WALK 100 FEET AND CAN FUNCTIONED INDEPENDENTLY. TO ARRANGE TAXI CAB AFTER DINNER.
--- NOTE | 2022-11-06 19:00 | NUR ---
D/C Patient Patient given medication reconciliation form and D/C instructions. Exit Care provided. Patient verbalized understanding. MD discussed with patient the results and treatment provided. Patient in stable condition, ID band removed. IV catheter removed, intact and dressing applied, no active bleeding. Rx of given. Patient educated on pain management. All belongings sent with patient. WHEEL OUT BY STAFF, CLINICIAN ONCOLOGY BY UBER ARRANGED BY BED CONTROL NURSE.
== END 2022-11-06 19:00 | disposition home health service (06) | DRG 393 ==
LOC: SED 18:21 → STU 22:21
PROVIDERS: ADMIT Internal Medicine; ATTEND Internal Medicine
DX: K62.89 Other specified diseases of anus and rectum (principal); G92.8 Other toxic encephalopathy; N17.9 Acute kidney failure, unspecified; K59.00 Constipation, unspecified; I48.91 Unspecified atrial fibrillation; I45.10 Unspecified right bundle-branch block; E87.5 Hyperkalemia; E03.9 Hypothyroidism, unspecified; E11.9 Type 2 diabetes mellitus without complications; G89.29 Other chronic pain; E78.00 Pure hypercholesterolemia, unspecified; M54.9 Dorsalgia, unspecified; Z20.822 Contact with and (suspected) exposure to COVID-19; K21.9 Gastro-esophageal reflux disease without esophagitis; M81.0 Age-related osteoporosis without current pathological fracture; J44.9 Chronic obstructive pulmonary disease, unspecified; Z79.891 Long term (current) use of opiate analgesic; Z79.899 Other long term (current) drug therapy; Z87.891 Personal history of nicotine dependence; Z79.84 Long term (current) use of oral hypoglycemic drugs
CPT/HCPCS: 36415; 70450-TC; 71045; 76376; 76770; 80048; 80053; 80307; 81000; 82009; 82150; 82962; 83605; 83615; 83690; 84439; 84443; 84484; 85025; 86140; 93005; 93306; 99285; G0378; J1815; J2060; J7030; J7040

== ENCOUNTER 2023-01-11 01:07 | Inpatient (IN) | payer OTHER ==
[~2023-01-11] VITALS: Ht 172.7 cm; Wt 54.9 kg
[~2023-01-11 01:07] MED LIST changes: -ALBMDI INH; -ALPR0.25 PO; +COLL100 PO; +DOCU250C14 PO; -FAMO20TA8 PO; -GLIP5TAB13 PO; -HYDR-3919 PO; -LEVO25TA7 PO; +LEVO75CA5 PO; +NAPR-690 PO
[2023-01-11 01:16] VITALS: BP_SYST 94
[2023-01-11] MEDS ORDERED: NACL 0.9% 1,000 ML IV ONE ×2 (01:30→02:00)
[2023-01-11 02:16] LABS: MEAN CORPUSCULAR HEMOGLOBIN 28 pg (27-31); MEAN CORPUSCULAR HGB CONC 31 % (32-36); MEAN CORPUSCULAR VOLUME 89 fL (79.0-98.0)
[2023-01-11 02:19] LABS: ANION GAP 20 (5-15); CALCIUM 9.5 mg/dL (8.4-11.0); CHLORIDE 103 mmol/L (98-107); CREATININE 1.86 mg/dL (0.55-1.30); GLUCOSE 250 mg/dL (70-99); UREA NITROGEN, BLOOD 47 mg/dL (8-21)
[2023-01-11 02:25] LABS: BASOPHILS # (AUTO) 0.1 K/uL (0.0-0.2); BASOPHILS % (AUTO) 0.8 % (0.0-2.0); EOSINOPHILS # (AUTO) 0.1 K/uL (0.0-0.4); EOSINOPHILS % (AUTO) 0.8 % (0.0-4.0); HEMATOCRIT 40.8 % (36-54); HEMOGLOBIN 12.7 g/dL (14.0-18.0); LYMPHOCYTES # (AUTO) 2.1 K/uL (1.0-5.5); MONOCYTES # (AUTO) 1.1 K/uL (0.0-1.0); MONOCYTES % (AUTO) 6.2 % (1.7-9.3); NEUTROPHILS % (AUTO) 80.2 % (40.0-70.0); PLATELET COUNT (AUTO) 583 K/uL (130-430); RED BLOOD CELL COUNT(AUTO) 4.57 MIL/uL (4.2-6.2); RED CELL DISTRIBUTION WIDTH 16.9 % (9.0-15.0); WHITE BLOOD COUNT (AUTO) 17.5 K/uL (4.8-10.8)
[2023-01-11 02:26] LABS: ALANINE AMINOTRANSFERASE 10 U/L (12-78); ALBUMIN 2.9 g/dL (3.4-4.8); ASPARTATE AMINOTRANSFERASE 8 U/L (10-37); TOTAL BILIRUBIN 0.5 mg/dL (0.0-1.0)
[2023-01-11] MEDS ORDERED: cefTRIAXone 1 GM in D5W 50 ML IV ONE (02:45)
[2023-01-11 03:19] LABS: BILIRUBIN,URINE NEGATIVE (NEGATIVE); BLOOD, URINE 2+ (NEGATIVE); CLARITY/URINE SL CLOUDY (CLEAR); COLOR,URINE YELLOW (YELLOW); GLUCOSE,URINE NEGATIVE (NEGATIVE); KETONES,URINE 1+ (NEGATIVE); LEUKOCYTE ESTERASE ,URINE 2+ (NEGATIVE); NITRITE, URINE POSITIVE (NEGATIVE); PROTEIN URINE 2+ (NEGATIVE); UROBILINOGEN,URINE 0.2 (0.2-1.0)
[2023-01-11] MEDS ORDERED: cefTRIAXone 1 GM VIAL ONE (03:30)
[2023-01-11 03:38] LABS: BACTERIA,URINE FEW /HPF (None Seen); RBC,URINE 0-3 /HPF (0-3); WBC,URINE 50-80 /HPF (0-3); YEAST,URINE None Seen /HPF (None Seen)
[2023-01-11 03:39] LABS: MUCUS,URINE None Seen /LPF (None Seen)
[2023-01-11] MEDS ORDERED: LACT10SO7 PO (07:37)
[2023-01-11] MEDS ORDERED: ATEN-41 PO (07:37)
[2023-01-11] MEDS ORDERED: ALBU2.5V7 HHN (07:37)
[2023-01-11] MEDS ORDERED: AMLO5TAB92 PO (07:37)
[2023-01-11] MEDS ORDERED: TIOT4MIS5 INH (07:37)
[2023-01-11] MEDS ORDERED: D5/0.45 NS 1,000 ML IV ONE (08:00)
[2023-01-11 10:23] VITALS: BP_SYST 135
[2023-01-11 11:37] VITALS: BP_SYST 133
[2023-01-11 15:32] VITALS: BP_SYST 151
[2023-01-11] MEDS ORDERED: ONDANSETRON HCL 4 MG/2 ML VIAL IVP PRN (19:15)
[2023-01-11] MEDS ORDERED: IPRATROPIUM BROM 0.5 MG/2.5 ML VIAL.NEB (ATROVENT) INH PRN (19:15)
[2023-01-11] MEDS ORDERED: LORazepam 2 MG/ML VIAL IVP PRN (19:15)
[2023-01-11] MEDS ORDERED: ACETAMINOPHEN 325 MG TABLET PO PRN (19:15)
[2023-01-11] MEDS ORDERED: ALBUTEROL SULFATE 0.083% 2.5 MG/3 ML VIAL.NEB INH PRN (19:15)
[2023-01-11] MEDS ORDERED: NAPROXEN 250 MG TABLET PO PRN (19:45)
[2023-01-11 20:20] VITALS: BP_SYST 109
[2023-01-11] MEDS ORDERED: ALPRAZolam 0.25 MG TABLET PO ONE (20:45)
[2023-01-11] MEDS: D5/0.45 NS 1,000 ML IV SCH (21:17)
[2023-01-11] MEDS: SIMVASTATIN 40 MG TABLET PO SCH (22:16)
[2023-01-11] MEDS: DOCUSATE SODIUM 250 MG CAPSULE PO SCH (22:16)
[2023-01-11] MEDS: INSULIN REGULAR, HUMAN 100 UNITS/ML, 3 ML VIAL (humuLIN R) SUBCUT PRN (22:41)
[2023-01-12 00:36] VITALS: BP_SYST 154
[2023-01-12 01:46] VITALS: BP_SYST 154
[2023-01-12] MEDS: D5/0.45 NS 1,000 ML IV SCH ×2 (05:15→11:18)
[2023-01-12] MEDS ORDERED: cefTRIAXone 1 GM IVPB PREMIX 50 ML IV ONE (05:25)
[2023-01-12] MEDS: LEVOTHYROXINE SODIUM 0.075 MG TABLET PO SCH (06:17)
[2023-01-12] MEDS: cefTRIAXone 1 GM IVPB PREMIX 50 ML IV SCH (06:18)
[2023-01-12 07:11] LABS: BASOPHILS # (AUTO) 0.1 K/uL (0.0-0.2); BASOPHILS % (AUTO) 0.4 % (0.0-2.0); EOSINOPHILS # (AUTO) 0.6 K/uL (0.0-0.4); EOSINOPHILS % (AUTO) 3.3 % (0.0-4.0); HEMATOCRIT 36.3 % (36-54); HEMOGLOBIN 11.7 g/dL (14.0-18.0); LYMPHOCYTES # (AUTO) 1.2 K/uL (1.0-5.5); LYMPHOCYTES % (AUTO) 7.3 % (20.5-51.5); MEAN CORPUSCULAR HEMOGLOBIN 29 pg (27-31); MEAN CORPUSCULAR HGB CONC 32 % (32-36); MEAN CORPUSCULAR VOLUME 89 fL (79.0-98.0); MONOCYTES # (AUTO) 0.6 K/uL (0.0-1.0); MONOCYTES % (AUTO) 3.7 % (1.7-9.3); NEUTROPHILS # (AUTO) 14.5 K/uL (1.8-7.7); NEUTROPHILS % (AUTO) 85.3 % (40.0-70.0); PLATELET COUNT (AUTO) 413 K/uL (130-430); RED BLOOD CELL COUNT(AUTO) 4.09 MIL/uL (4.2-6.2); RED CELL DISTRIBUTION WIDTH 16.8 % (9.0-15.0); WHITE BLOOD COUNT (AUTO) 16.9 K/uL (4.8-10.8)
[2023-01-12 07:53] LABS: ANION GAP 9 (5-15); C-REACTIVE PROTEIN QUANT 6.9 mg/dL (0-0.5); CALCIUM 8.5 mg/dL (8.4-11.0); CHLORIDE 105 mmol/L (98-107); CREATININE 1.59 mg/dL (0.55-1.30); GLUCOSE 99 mg/dL (70-99); PHOSPHORUS 2.6 mg/dL (2.7-4.5); UREA NITROGEN, BLOOD 37 mg/dL (8-21)
[2023-01-12 08:02] LABS: ERYTHROCYTE SEDIMENTATION RATE 34 MM/HR (0-15)
[2023-01-12 08:05] VITALS: BP_SYST 102
[2023-01-12] MEDS: ATENOLOL 25 MG TABLET(TENORMIN) PO SCH (09:00)
[2023-01-12] MEDS: amLODIPine BESYLATE 5 MG TABLET PO SCH (09:00)
[2023-01-12] MEDS: DOCUSATE SODIUM 250 MG CAPSULE PO SCH ×2 (10:50→21:52)
[2023-01-12 11:46] VITALS: BP_SYST 102
[2023-01-12 17:19] VITALS: BP_SYST 103
[2023-01-12] MEDS: INSULIN REGULAR, HUMAN 100 UNITS/ML, 3 ML VIAL (humuLIN R) SUBCUT PRN (17:45)
[2023-01-12 20:00] VITALS: BP_SYST 98
[2023-01-12] MEDS: MUPIROCIN 2% TOPICAL OINTMENT 22 GM NS SCH (21:00)
[2023-01-12] MEDS: SIMVASTATIN 40 MG TABLET PO SCH (21:52)
[2023-01-12] MEDS ORDERED: GLUCOSE (DEXTROSE) ORAL GEL -Adults PO PRN (22:15)
[2023-01-12] MEDS ORDERED: D5W 1,000 ML IV PRN (22:15)
[2023-01-12] MEDS: DEXTROSE 50% JECT 50 ML DISP.SYRIN IVP PRN (23:23)
[2023-01-13 00:49] VITALS: BP_SYST 98
[2023-01-13] MEDS: D5/0.45 NS 1,000 ML IV SCH (01:12)
[2023-01-13] MEDS: LEVOTHYROXINE SODIUM 0.075 MG TABLET PO SCH (06:48)
[2023-01-13] MEDS: cefTRIAXone 1 GM IVPB PREMIX 50 ML IV SCH (06:48)
[2023-01-13 07:06] LABS: BASOPHILS # (AUTO) 0.1 K/uL (0.0-0.2); BASOPHILS % (AUTO) 0.4 % (0.0-2.0); EOSINOPHILS # (AUTO) 0.3 K/uL (0.0-0.4); EOSINOPHILS % (AUTO) 2.1 % (0.0-4.0); HEMATOCRIT 34.3 % (36-54); HEMOGLOBIN 11.3 g/dL (14.0-18.0); LYMPHOCYTES # (AUTO) 0.9 K/uL (1.0-5.5); LYMPHOCYTES % (AUTO) 7.6 % (20.5-51.5); MEAN CORPUSCULAR HEMOGLOBIN 29 pg (27-31); MEAN CORPUSCULAR HGB CONC 33 % (32-36); MEAN CORPUSCULAR VOLUME 88 fL (79.0-98.0); MONOCYTES # (AUTO) 0.3 K/uL (0.0-1.0); MONOCYTES % (AUTO) 2.8 % (1.7-9.3); NEUTROPHILS # (AUTO) 10.9 K/uL (1.8-7.7); NEUTROPHILS % (AUTO) 87.1 % (40.0-70.0); PLATELET COUNT (AUTO) 370 K/uL (130-430); RED CELL DISTRIBUTION WIDTH 16.9 % (9.0-15.0); WHITE BLOOD COUNT (AUTO) 12.5 K/uL (4.8-10.8)
[2023-01-13 07:57] LABS: ALANINE AMINOTRANSFERASE 12 U/L (12-78); ANION GAP 8 (5-15); ASPARTATE AMINOTRANSFERASE 10 U/L (10-37); C-REACTIVE PROTEIN QUANT 6.6 mg/dL (0-0.5); CALCIUM 7.9 mg/dL (8.4-11.0); CHLORIDE 105 mmol/L (98-107); CREATININE 1.29 mg/dL (0.55-1.30); GLUCOSE 202 mg/dL (70-99); PHOSPHORUS 2.5 mg/dL (2.7-4.5); TOTAL BILIRUBIN 0.3 mg/dL (0.0-1.0); UREA NITROGEN, BLOOD 30 mg/dL (8-21)
[2023-01-13 08:00] VITALS: BP_SYST 103
[2023-01-13 08:48] LABS: ERYTHROCYTE SEDIMENTATION RATE 26 MM/HR (0-15)
[2023-01-13] MEDS: DOCUSATE SODIUM 250 MG CAPSULE PO SCH ×2 (09:00→22:52)
[2023-01-13] MEDS: amLODIPine BESYLATE 5 MG TABLET PO SCH (09:00)
[2023-01-13] MEDS: ATENOLOL 25 MG TABLET(TENORMIN) PO SCH (09:01)
[2023-01-13] MEDS: MUPIROCIN 2% TOPICAL OINTMENT 22 GM NS SCH ×2 (09:53→21:00)
[2023-01-13 10:18] VITALS: BP_SYST 117
[2023-01-13] MEDS: INSULIN REGULAR, HUMAN 100 UNITS/ML, 3 ML VIAL (humuLIN R) SUBCUT PRN (12:10)
[2023-01-13] MEDS ORDERED: NA PHOS 15 MM in NS 250 ML IV ONE (13:00)
[2023-01-13 15:52] VITALS: BP_SYST 101
[2023-01-13 20:00] VITALS: BP_SYST 118
[2023-01-13] MEDS: SIMVASTATIN 40 MG TABLET PO SCH (22:52)
[2023-01-14 00:53] VITALS: BP_SYST 101
[2023-01-14] MEDS: cefTRIAXone 1 GM IVPB PREMIX 50 ML IV SCH (05:34)
[2023-01-14] MEDS: INSULIN REGULAR, HUMAN 100 UNITS/ML, 3 ML VIAL (humuLIN R) SUBCUT PRN (06:52)
[2023-01-14] MEDS: LEVOTHYROXINE SODIUM 0.075 MG TABLET PO SCH (07:16)
[2023-01-14 07:41] LABS: BASOPHILS % (AUTO) 0.3 % (0.0-2.0); EOSINOPHILS # (AUTO) 0.4 K/uL (0.0-0.4); EOSINOPHILS % (AUTO) 2.6 % (0.0-4.0); HEMATOCRIT 34.5 % (36-54); HEMOGLOBIN 11.1 g/dL (14.0-18.0); LYMPHOCYTES # (AUTO) 1.1 K/uL (1.0-5.5); LYMPHOCYTES % (AUTO) 8.1 % (20.5-51.5); MEAN CORPUSCULAR HEMOGLOBIN 29 pg (27-31); MEAN CORPUSCULAR HGB CONC 32 % (32-36); MEAN CORPUSCULAR VOLUME 89 fL (79.0-98.0); MONOCYTES # (AUTO) 0.5 K/uL (0.0-1.0); NEUTROPHILS # (AUTO) 11.7 K/uL (1.8-7.7); PLATELET COUNT (AUTO) 379 K/uL (130-430); RED BLOOD CELL COUNT(AUTO) 3.89 MIL/uL (4.2-6.2); WHITE BLOOD COUNT (AUTO) 13.8 K/uL (4.8-10.8)
[2023-01-14 08:00] VITALS: BP_SYST 124
[2023-01-14] MEDS: MUPIROCIN 2% TOPICAL OINTMENT 22 GM NS SCH (08:24)
[2023-01-14] MEDS: ATENOLOL 25 MG TABLET(TENORMIN) PO SCH (08:30)
[2023-01-14] MEDS: amLODIPine BESYLATE 5 MG TABLET PO SCH (08:30)
[2023-01-14 08:31] LABS: ANION GAP 11 (5-15); C-REACTIVE PROTEIN QUANT 7.5 mg/dL (0-0.5); CALCIUM 8.1 mg/dL (8.4-11.0); CHLORIDE 106 mmol/L (98-107); CREATININE 1.28 mg/dL (0.55-1.30); GLUCOSE 129 mg/dL (70-99); UREA NITROGEN, BLOOD 27 mg/dL (8-21)
[2023-01-14] MEDS: DOCUSATE SODIUM 250 MG CAPSULE PO SCH (08:31)
[2023-01-14 10:38] LABS: ERYTHROCYTE SEDIMENTATION RATE 19 MM/HR (0-15)
[2023-01-14 11:37] VITALS: BP_SYST 104
[2023-01-14] MEDS: DEXTROSE 50% JECT 50 ML DISP.SYRIN IVP PRN (13:00)
[2023-01-14 17:07] VITALS: BP_SYST 120
[2023-01-14] MEDS: SIMVASTATIN 40 MG TABLET PO SCH (21:00)
[2023-01-14 22:12] VITALS: BP_SYST 158
[2023-01-15] VITALS (7 sets, daily range): BP systolic 101–132
[2023-01-15] MEDS: cefTRIAXone 1 GM IVPB PREMIX 50 ML IV SCH (05:55)
[2023-01-15 06:33] LABS: BASOPHILS # (AUTO) 0.1 K/uL (0.0-0.2); BASOPHILS % (AUTO) 0.5 % (0.0-2.0); EOSINOPHILS # (AUTO) 0.2 K/uL (0.0-0.4); EOSINOPHILS % (AUTO) 1.8 % (0.0-4.0); HEMATOCRIT 36.7 % (36-54); LYMPHOCYTES # (AUTO) 1.5 K/uL (1.0-5.5); LYMPHOCYTES % (AUTO) 11.1 % (20.5-51.5); MEAN CORPUSCULAR HEMOGLOBIN 29 pg (27-31); MEAN CORPUSCULAR HGB CONC 33 % (32-36); MEAN CORPUSCULAR VOLUME 90 fL (79.0-98.0); MONOCYTES # (AUTO) 0.7 K/uL (0.0-1.0); MONOCYTES % (AUTO) 4.9 % (1.7-9.3); NEUTROPHILS # (AUTO) 11.2 K/uL (1.8-7.7); NEUTROPHILS % (AUTO) 81.7 % (40.0-70.0); PLATELET COUNT (AUTO) 361 K/uL (130-430); RED CELL DISTRIBUTION WIDTH 17.1 % (9.0-15.0); WHITE BLOOD COUNT (AUTO) 13.7 K/uL (4.8-10.8)
[2023-01-15] MEDS: LEVOTHYROXINE SODIUM 0.075 MG TABLET PO SCH ×2 (07:00→10:29)
[2023-01-15 07:29] LABS: ANION GAP 9 (5-15); CALCIUM 8.2 mg/dL (8.4-11.0); CHLORIDE 104 mmol/L (98-107); CREATININE 1.23 mg/dL (0.55-1.30); GLUCOSE 143 mg/dL (70-99); UREA NITROGEN, BLOOD 26 mg/dL (8-21)
[2023-01-15] MEDS: amLODIPine BESYLATE 5 MG TABLET PO SCH (09:00)
[2023-01-15] MEDS: MUPIROCIN 2% TOPICAL OINTMENT 22 GM NS SCH ×2 (09:00→21:00)
[2023-01-15] MEDS: DOCUSATE SODIUM 250 MG CAPSULE PO SCH ×2 (09:00→21:00)
[2023-01-15] MEDS: ATENOLOL 25 MG TABLET(TENORMIN) PO SCH (09:00)
[2023-01-15] MEDS: SIMVASTATIN 40 MG TABLET PO SCH (21:00)
[2023-01-16] MEDS: DOCUSATE SODIUM 250 MG CAPSULE PO SCH ×2 (09:00→20:54)
[2023-01-16] MEDS: MUPIROCIN 2% TOPICAL OINTMENT 22 GM NS SCH ×2 (09:00→20:54)
[2023-01-16 09:05] VITALS: BP_SYST 111
[2023-01-16] MEDS: ATENOLOL 25 MG TABLET(TENORMIN) PO SCH (09:10)
[2023-01-16] MEDS: amLODIPine BESYLATE 5 MG TABLET PO SCH (09:10)
[2023-01-16] MEDS: cefTRIAXone 1 GM IVPB PREMIX 50 ML IV SCH (09:10)
[2023-01-16 11:53] VITALS: BP_SYST 120
[2023-01-16] MEDS: INSULIN REGULAR, HUMAN 100 UNITS/ML, 3 ML VIAL (humuLIN R) SUBCUT PRN (12:00)
[2023-01-16] MEDS ORDERED: SULFAMETHOXAZOLE/TRIMETHOPR DS 1 TABLET PO ONE (15:00)
[2023-01-16 15:48] VITALS: BP_SYST 107
[2023-01-16 20:00] VITALS: BP_SYST 100
[2023-01-16] MEDS: SIMVASTATIN 40 MG TABLET PO SCH (20:54)
[2023-01-17 00:06] VITALS: BP_SYST 93
[2023-01-17] MEDS: cefTRIAXone 1 GM IVPB PREMIX 50 ML IV SCH (06:00)
[2023-01-17] MEDS: LEVOTHYROXINE SODIUM 0.075 MG TABLET PO SCH (06:20)
[2023-01-17 07:56] VITALS: BP_SYST 119
[2023-01-17] MEDS: DOCUSATE SODIUM 250 MG CAPSULE PO SCH (09:00)
[2023-01-17] MEDS: MUPIROCIN 2% TOPICAL OINTMENT 22 GM NS SCH (09:00)
[2023-01-17] MEDS: amLODIPine BESYLATE 5 MG TABLET PO SCH (09:00)
[2023-01-17] MEDS ORDERED: SULFAMETHOXAZOLE/TRIMETHOPR DS 1 TABLET PO SCH (09:00)
[2023-01-17] MEDS: ATENOLOL 25 MG TABLET(TENORMIN) PO SCH (09:00)
[2023-01-17 11:52] VITALS: BP_SYST 95
[2023-01-17] MEDS ORDERED: SULF1TAB48 PO (13:39)
[2023-01-17 16:18] VITALS: BP_SYST 97
== END 2023-01-17 16:57 | DRG 871 ==
LOC: SED 01:07 → STU 07:55 → SMU 01-13 12:19
PROVIDERS: ADMIT Specialist; ATTEND Specialist
DX: A41.9 Sepsis, unspecified organism (principal); E43 Unspecified severe protein-calorie malnutrition; N17.9 Acute kidney failure, unspecified; N12 Tubulo-interstitial nephritis, not specified as acute or chronic; E87.1 Hypo-osmolality and hyponatremia; Z68.1 Body mass index [BMI] 19.9 or less, adult; D75.839 Thrombocytosis, unspecified; E83.39 Other disorders of phosphorus metabolism; E88.09 Other disorders of plasma-protein metabolism, not elsewhere classified; R53.81 Other malaise; E83.52 Hypercalcemia; E83.51 Hypocalcemia; I12.9 Hypertensive chronic kidney disease with stage 1 through stage 4 chronic kidney disease, or unspecified chronic kidney disease; N18.32 Chronic kidney disease, stage 3b; D64.9 Anemia, unspecified; B96.89 Other specified bacterial agents as the cause of diseases classified elsewhere; Z20.822 Contact with and (suspected) exposure to COVID-19; S09.90XA Unspecified injury of head, initial encounter; W18.39XA Other fall on same level, initial encounter; Z79.84 Long term (current) use of oral hypoglycemic drugs; Z79.899 Other long term (current) drug therapy; Y93.89 Activity, other specified; Y92.89 Other specified places as the place of occurrence of the external cause; Y99.8 Other external cause status; Z22.322 Carrier or suspected carrier of Methicillin resistant Staphylococcus aureus
CPT/HCPCS: 36415; 70450-TC; 71045; 72192-TC; 72195; 73700-TC; 76376; 76770; 80048; 80053; 81000; 83605; 83735; 83880; 84100; 84484; 85025; 85651-TC; 86140; 87040; 87081; 87086; 92610-GN; 93005; 94640; 94760; 96361; 96365; 97163-GP; 97530-GP; 99291; G0378; J0696; J7050; J7613